=== PATIENT | female | born 1995 | race Caucasian/White ===

== ENCOUNTER 2025-05-10 16:05 | Inpatient (IN) | payer OTHER, SELFPAY ==
[2025-05-10 21:46] VITALS: BMI 32.3
[2025-05-10] MEDS ORDERED: Diphenoxylate HCl/Atropine Tablet PO PRN ×2 (21:46)
[2025-05-10] MEDS ORDERED: hydrALAZINE 20 MG/ML VIAL SLOW IVP PRN (21:46)
[2025-05-10] MEDS ORDERED: Methylergonovine 0.2 MG/ML VIAL IM PRN (21:46)
[2025-05-10] MEDS ORDERED: Carboprost 250 MCG/ML AMP IM PRN (21:46)
[2025-05-10] MEDS ORDERED: Lidocaine 1% (PF) 30 ML VIAL SC PRN ×2 (21:46→22:15)
[2025-05-10] MEDS ORDERED: Oxytocin 30 units/NS 500 ML 500 ML IV SCH (21:46)
[2025-05-10] MEDS ORDERED: Ondansetron PF 4 MG/2 ML Vial IVP PRN (21:46)
[2025-05-10] MEDS ORDERED: Tranexamic Acid 1,000 MG/10 ML VIAL IVP PRN (21:46)
[2025-05-10] MEDS ORDERED: Acetaminophen 500 MG TAB PO PRN (21:46)
[2025-05-10] MEDS ORDERED: HYDROcodone/Acetaminophen 5/325 mg Tablet PO PRN ×2 (21:46)
[2025-05-10] MEDS ORDERED: Ibuprofen 800 MG TAB PO PRN (21:46)
[2025-05-10 22:12] LABS: Hematocrit 33.6 % (34.9-44.5); Hemoglobin 11.5 g/dL (12.0-15.5); Mean Corpuscular Hemoglobin 33.5 pg (27.0-33.0); Mean Corpuscular Volume 98.0 fL (81.6-98.3); Platelet Count 251 10x3/uL (150-450); Red Blood Cell (RBC) Count 3.43 10x6/uL (3.90-5.03); White Blood Cell (WBC) Count 16.97 10x3/uL (3.5-10.5)
[2025-05-10] MEDS: Penicillin G Potassium 5 MILL.UNITS in Sodium Chloride 0.9% 100 ML IVPB SCH (22:30)
[2025-05-10 22:42] LABS: Syphilis Antibody Index 0.08 S/CO (<1.00 Non-Reactive)
[2025-05-10 22:43] LABS: Hep B Surf Ag - L&D Non-Reactive S/CO (NonReactive)
[2025-05-11] MEDS: Penicillin G 2.5 MILL.units 2.5 MILL.UNITS in Premix 1 BAG IVPB SCH (02:33)
[2025-05-11] MEDS: Oxytocin 30 units/NS 500 ML 500 ML IV SCH (04:59)
[2025-05-11] MEDS ORDERED: Acetaminophen 325 MG TAB PO PRN (07:11)
[2025-05-11] MEDS ORDERED: Ondansetron PF 4 MG/2 ML Vial IVP PRN (07:11)
[2025-05-11] MEDS ORDERED: diphenhydrAMINE 50 MG/ML VIAL IVP PRN (07:11)
[2025-05-11] MEDS ORDERED: Communication Order-Pharmacy FS SCH (07:15)
[2025-05-11] MEDS ORDERED: fentaNYL 2 mcg/Ropivacaine 0.2% Epidural 100 ML CADD EPIDURAL SCH (07:15)
[2025-05-11] MEDS ORDERED: diphenhydrAMINE 25 MG CAP PO PRN (15:35)
[2025-05-11] MEDS ORDERED: Lanolin Ointment 7 GM TUBE TOP PRN (15:35)
[2025-05-11] MEDS ORDERED: Milk Of Magnesia 30 ML UDCUP PO PRN (15:35)
[2025-05-11] MEDS ORDERED: Preparation H Ointment 28 GM TUBE PR PRN (15:35)
[2025-05-11] MEDS ORDERED: Bisacodyl 10 MG SUPP PR PRN (15:35)
[2025-05-11] MEDS ORDERED: Benzocaine-Menthol 82.5 ML CAN TOP PRN (15:35)
[2025-05-11] MEDS ORDERED: hydrALAZINE 20 MG/ML VIAL SLOW IVP PRN (15:35)
[2025-05-11] MEDS: Ibuprofen 800 MG TAB PO SCH (16:30)
[2025-05-11] MEDS: Ferrous Sulfate 325 MG TAB PO SCH (18:13)
[2025-05-11] MEDS: fentaNYL/Ropivacaine Epidural 100 ML ONE (18:13)
[2025-05-12] MEDS ORDERED: Bupivacaine 0.25% HCL 30 ML VIAL ONE (19:00)
[2025-05-12] MEDS ORDERED: Bupivacaine HCl 0.5%/Epinephrine 1:200,000/PF 30 ml Vial ONE (19:00)
[2025-05-13 08:06] VITALS: BP 107/67; TEMP 97.5
== END 2025-05-13 12:50 | disposition home or self-care (01) | DRG 806 ==
LOC: CSHLD 20:42 → CSHPP 05-11 16:52
PROVIDERS: ADMIT Obstetrics & Gynecology; ATTEND Obstetrics & Gynecology
PROC: 3E03329 Introduction of Other Anti-infective into Peripheral Vein, Percutaneous Approach (ICD-10-PCS; 2025-05-10)
PROC: 10E0XZZ Delivery of Products of Conception, External Approach (ICD-10-PCS; principal; 2025-05-11)
PROC: 0KQM0ZZ Repair Perineum Muscle, Open Approach (ICD-10-PCS; 2025-05-11)
PROC: 3E033XZ Introduction of Vasopressor into Peripheral Vein, Percutaneous Approach (ICD-10-PCS; 2025-05-11)
DX: O48.0 Post-term pregnancy (principal); D62 Acute posthemorrhagic anemia; Z37.0 Single live birth; Z3A.40 40 weeks gestation of pregnancy; O70.1 Second degree perineal laceration during delivery; O90.81 Anemia of the puerperium; O99.824 Streptococcus B carrier state complicating childbirth; Z28.21 Immunization not carried out because of patient refusal
CPT/HCPCS: 36415; 51702; 85027; 86780; 86850; 86900; 86901; 87340; J0665; J2540; J2590; J7120